=== PATIENT | female | born 1990 | race Caucasian/White ===

== ENCOUNTER 2017-04-05 13:15 | Outpatient (CLI) | payer BC | END 2017-04-05 15:53 | disposition home or self-care (01) | LOC: OBT 13:15 → L-D 13:15 → OBT 15:53 | DX: O41.03X0 Oligohydramnios, third trimester, not applicable or unspecified (principal); Z3A.37 37 weeks gestation of pregnancy | CPT/HCPCS: 76818 ==

== ENCOUNTER 2017-04-19 18:18 | Inpatient (IN) | payer BC ==
[2017-04-19] MEDS ORDERED: CARBOPROST 250 MCG INJ IM (18:30)
[2017-04-19] MEDS ORDERED: MISOPROSTOL 200 MCG TAB PR (18:30)
[2017-04-19] MEDS ORDERED: LIDOCAINE 1% (MPF) 30 ML INJ INJ (18:30)
[2017-04-19] MEDS ORDERED: OXYTOCIN 30 UNITS/LR 500 ML IV ×2 (18:30)
[2017-04-19] MEDS ORDERED: IBUPROFEN 600 MG TAB PO (18:30)
[2017-04-19] MEDS ORDERED: METHYLERGONOVINE 0.2 MG INJ IM (18:30)
[2017-04-19] MEDS ORDERED: BUTORPHANOL 2 MG INJ IV (18:30)
[2017-04-19] MEDS: LACTATED RINGER'S 1,000 ML IV (19:16)
[2017-04-19 19:20] LABS: ADD MAN DIFF? NO
[2017-04-19 19:33] LABS: WHITE BLOOD COUNT 9.9 10^3/ul (4.8-10.8)
[2017-04-19 19:33] LABS: BASOPHILS % 0.3 % (0.0-2.0); EOSINOPHILS # 0.1 10^3/ul (0.0-0.5); EOSINOPHILS % 0.8 % (0.0-7.0); HEMATOCRIT 34.3 % (37.0-47.0); HEMOGLOBIN 11.2 g/dl (12.0-16.0); LYMPHOCYTES % 20.4 % (15.0-51.0); MEAN CORPUSCULAR HEMOGLOBIN 27.4 pg (29.0-33.0); MEAN CORPUSCULAR HGB CONC 32.7 g/dl (32.0-37.0); MEAN CORPUSCULAR VOLUME 83.9 fl (82.0-101.0); MEAN PLATELET VOLUME 10.9 fl (7.4-10.4); MONOCYTE # 0.9 10^3/ul (0.3-0.9); MONOCYTES % 8.6 % (0.0-11.0); NEUTROPHIL # 6.8 10^3/ul (1.6-7.5); NEUTROPHILS % 68.7 % (39.0-77.0); PLATELET COUNT 323 10^3/UL (140-415); RED BLOOD COUNT 4.09 10^6/ul (4.20-5.40); RED CELL DISTRIBUTION WIDTH 14.6 % (11.5-14.5)
[2017-04-19 19:56] LABS: INR 0.92; PROTIME 12.4 Sec (11.9-14.9)
[2017-04-19] MEDS: DINOPROSTONE 10 MG VAG SUPP VAG (20:01)
[2017-04-19 20:46] LABS: AMPHETAMINE/METHAMPHETAMINE Negative (NEGATIVE); BARBITURATES Negative (NEGATIVE); BENZODIAZEPINES Negative (NEGATIVE); CANNABINOIDS Negative (NEGATIVE); COCAINE Negative (NEGATIVE); OPIATES Negative (NEGATIVE)
[2017-04-19 20:46] LABS: HEPATITIS B SURFACE ANTIGEN NEGATIVE (NEGATIVE)
[2017-04-20] MEDS: LACTATED RINGER'S 1,000 ML IV ×3 (02:51→19:31)
[2017-04-20] MEDS: OXYTOCIN 30 UNITS/LR 500 ML IV (11:12)
[2017-04-20 15:08] LABS: RAPID PLASMA REAGIN NONREACTIVE (NR)
[2017-04-21] MEDS: LACTATED RINGER'S 1,000 ML IV ×3 (00:20→16:41)
[2017-04-22] MEDS: OXYTOCIN 30 UNITS/LR 500 ML IV ×2 (00:50→14:40)
[2017-04-22] MEDS: LACTATED RINGER'S 1,000 ML IV ×4 (00:51→19:49)
[2017-04-22] MEDS ORDERED: FENTAnyl 2MCG/ML-ROPIV 0.2% 100 ML (03:24)
[2017-04-22] MEDS ORDERED: DIPHENHYDRAMINE 50 MG INJ IV (03:30)
[2017-04-22] MEDS ORDERED: NALOXONE (0.4 MG/ML) INJ IV (03:30)
[2017-04-22] MEDS ORDERED: ONDANSETRON 4 MG INJ IV (03:30)
[2017-04-22] MEDS ORDERED: SODIUM CHLORIDE 0.9% 1L IRRIG IRR (09:00)
[2017-04-22] MEDS: FENTAnyl 2MCG/ML-ROPIV 0.2% 100 ML BAG EPI (11:22)
[2017-04-22] MEDS ORDERED: AMPICILLIN 2 GM/NS (PMX) 100 ML (12:51)
[2017-04-22] MEDS: AMPICILLIN 2 GM/NS (PMX) 100 ML IVPB (12:55)
[2017-04-22] MEDS ORDERED: CARBOPROST 250 MCG INJ IM (16:00)
[2017-04-22] MEDS ORDERED: OXYTOCIN 30 UNITS/LR 500 ML IV (16:00)
[2017-04-22] MEDS ORDERED: OXYCODONE/ASPIRIN (4.88/325) TAB PO (16:00)
[2017-04-22] MEDS ORDERED: MISOPROSTOL 200 MCG TAB PR (16:00)
[2017-04-22] MEDS ORDERED: ZOLPIDEM 5 MG TAB PO (16:00)
[2017-04-22] MEDS ORDERED: METHYLERGONOVINE 0.2 MG INJ IM (16:00)
[2017-04-22] MEDS: BENZOCAINE 20% 56 ML SPRAY TOP (16:44)
[2017-04-22] MEDS: WITCH HAZEL/GLYCERIN PAD PR (16:44)
[2017-04-22] MEDS: LANOLIN 7 GM TUBE TOP (16:45)
[2017-04-22] MEDS: OXYCODONE/ASPIRIN (4.88/325) TAB PO (16:45)
[2017-04-22] MEDS: IBUPROFEN 600 MG TAB PO ×2 (18:04→22:34)
[2017-04-22] MEDS: SENNA/DOCUSATE NA (8.6MG/50MG) TAB PO (21:00)
[2017-04-22] MEDS: CEFAZOLIN 2 GM/50 ML (PMX) 50 ML IV (22:00)
[2017-04-23] MEDS: LACTATED RINGER'S 1,000 ML IV (00:08)
[2017-04-24] MEDS ORDERED: DIPHTH/TET/ACEL PERTUSS (ADULT) 0.5 ML VIAL IM* (09:00)
== END 2017-04-22 23:00 | disposition home or self-care (01) | DRG 775 ==
LOC: PP1 04-22 16:14 → L-D 18:18
PROVIDERS: Obstetrics & Gynecology
PROC: 10E0XZZ Delivery of Products of Conception, External Approach (ICD-10-PCS; principal; 2017-04-20)
PROC: 3E0P7VZ Introduction of Hormone into Female Reproductive, Via Natural or Artificial Opening (ICD-10-PCS; 2017-04-20)
PROC: 3E033VJ Introduction of Other Hormone into Peripheral Vein, Percutaneous Approach (ICD-10-PCS; 2017-04-20)
PROC: 0HQ9XZZ Repair Perineum Skin, External Approach (ICD-10-PCS; 2017-04-20)
DX: O12.04 Gestational edema, complicating childbirth (principal); O77.0 Labor and delivery complicated by meconium in amniotic fluid; O70.9 Perineal laceration during delivery, unspecified; Z3A.39 39 weeks gestation of pregnancy; Z37.0 Single live birth
CPT/HCPCS: 62319; 76815; 80307; 85025; 85610; 85730; 86592; 86850; 86900; 86901; 87340; 99464

== ENCOUNTER 2017-04-24 19:01 | Emergency (ER) | payer SELFPAY, BC | END 2017-04-24 20:16 | disposition left against medical advice (07) | LOC: FTE 19:01 | DX: Z53.21 Procedure and treatment not carried out due to patient leaving prior to being seen by health care provider (principal) ==